=== PATIENT | female | born 1995 | race Caucasian/White ===

== ENCOUNTER 2017-05-04 15:41 | Inpatient (IN) ==
[2017-05-04] MEDS ORDERED: Naloxone 0.4 MG/ML INJ IVP PRN (15:48)
[2017-05-04] MEDS ORDERED: Ondansetron 4 MG/2 ML VIAL IVP PRN (15:48)
[2017-05-04] MEDS ORDERED: Famotidine 20 MG/2 ML VIAL IVP PRN (15:48)
[2017-05-04] MEDS ORDERED: Penicillin G Potassium 5,000,000 UNIT in 0.9 % Sodium Chloride Mini Bag 100 ML IVPB ONE (16:16)
[2017-05-04 16:21] LABS: Basophils % 0.2 %; Eosinophils % 0.4 %; Hematocrit 37.2 % (35.3-44.9); Lymphocytes # 1.3 K/mcL (0.6-4.6); Lymphocytes % 13.9 %; Mean Corpuscular HGB Conc 34.9 g/dL (31.6-35.5); Mean Corpuscular Hemoglobin 31.1 pg (28.0-33.3); Mean Platelet Volume 10.1 fL (9.4-12.4); Monocytes # 0.6 K/mcL (0.0-1.3); Neutrophils # 7.4 K/mcL (1.6-8.9); Platelet Count 216 K/mcL (140-400); Red Blood Count 4.18 M/mcL (3.82-4.97); Red Cell Distribution Width 12.9 % (11.5-14.5); Segmented Neutrophils % 78.5 %
[2017-05-04 16:50] LABS: Amphetamine Screen,Urine Negative ng/mL (Cutoff=1000); Barbiturate Screen,Urine Negative ng/mL (Cutoff=200); Benzodiazepines Screen,Urine Negative ng/mL (Cutoff=200); Cannabinoid Screen,Urine Negative ng/mL (Cutoff = 50); Cocaine Screen,Urine Negative ng/mL (Cutoff= 300); Opiate Screen,Urine Negative ng/mL (Cutoff=300); Phencyclidine Screen,Urine Negative ng/mL (Cutoff=25)
--- NOTE | 2017-05-04 16:50 | OB/GYN History & Physical ---
Date of Encounter: 05/04/17 Time of Encounter: 16:45 Assessment and Plan (1) SROM (spontaneous rupture of membranes) Current visit: Yes Status: Acute Patient reports SROM at 1300 today. Nitrazine postive GBS final cultures pending-will start PCN prophylaxis 2-3/-1 LR 125 ml/hr CBC UDS Monitoring Contractions every 3-4 minutes on the monitor Plan for (2) Uterine contractions Current visit: Yes Status: Acute Patient states that she has been having contractions since arrival to L&D Contractions every 3-4 minutes on the monitor. (3) 37 weeks gestation of Current visit: Yes Status: Acute Patient is 37w3d History of Present Illness Chief complaint: SROM HPI: Ms. Riddle is a 22 year old female at 37w3d presents to L&D due to feeling like her water broke. She states that she had a gush of clear fluid around 1300 today. States that she started having contractions after arrival to L&D that have been about 7 minutes apart. Denies any vaginal bleeding or discharge. Reports good movement. Denies any complication with this . States that she was seeing Dr. Baez but is now seeing the midwives. Blood type A Positive GBS pending-prelim was negative with yeast T Pallidum negative Hep B negative HIV negative I examined this patient and my medical decision-making was reviewed with the Resident Physician. I agree with the documented findings, disposition and treatment plan as described except to the extent set forth below. ESTEBAN Trevino Past Med Surg Social Fam HX - Past Medical History Medical history: no medical history Psychiatric history: no psych history - Past Surgical History Surgical History: no surgical history - Social History Smoking Status: Never smoker Smokeless Tobacco Status: No Alcohol use: none Drug use: none - Family History Mother Age: 50 Living Status: Still Living Hx Family Cardiac Disorders: No Hx Family Respiratory Disorders: No Hx Family Cancer: No Hx Family GI Disorders: No Hx Family Genitourinary Disorders: No Hx Family Endocrine Disorder: No Hx Family Musculoskeletal Disorders: No Hx Family Neuromuscular Disorders: No Hx Family Neurologic Disorders: No Hx Family HEENT Disorders: No Hx Family Autoimmune Disorders: No Hx Family Reproductive Disorders: No Hx Family Psychosocial Disorders: No Hx Family Medical Disorders: No Obstetrical History - Pregnancies : 1 Para: 0 Term: 0 : 0 Ab's: 0 Livin - History/Complications History/Complications: US showed Skeletal displasia (dwarfism) Family hx of dwarfism Medications and Allergies Vit/Iron Fumarate/FA [ Tablet] 1 / PO DAILY 05/04/17 [History] 3 Allergy/AdvReac Type Severity Reaction Status Date / Time No Known Allergies Allergy Verified 05/04/17 16:26 Review of System OB All systems PM: reviewed and no additional remarkable complaints except as stated - Cardiovascular Cardiovascular: pedal edema Exam - Constitutional Constitutional: well developed, well nourished, no acute distress, average body habitus - HEENT HEENT: Normocephaly, Mucus Membranes Moist - Neck Neck exam: full ROM - Lungs Respiratory exam: CTAB - Cardiovascular Cardiovascular exam: RRR, +S1, +S2 - Abdomen Abdomen: Present: bowel sounds normal, gravid. Absent: non tender - Extremities Extremities exam: full ROM, normal capillary refill, pedal edema (Mild edema in the bilateral lower extremities. Without any pain) - Cervix Dilation: 2 ((2-3) Per nursing) Effacement: 80 (Per Nursing) Station: -1 (Per nursing) Results Result Diagrams: 05/04/17 16:03 All other labs normal. - VTE Reasons for not Prescribing Prophylaxis: Treatment not Indicated - Low risk for VTE
[2017-05-04] MEDS: Ringers Solution, Lactated 1,000 ML IVC SCH (16:52)
[2017-05-04] MEDS ORDERED: Penicillin G Potassium 2,500,000 UNIT in D5% in Water 100 ML IVPB SCH (20:00)
[2017-05-04] MEDS ORDERED: Oxytocin 20 units/ LR 1000 mL 20 UNIT/1,000 ML BAG IVC SCH (20:45)
--- NOTE | 2017-05-04 22:31 | OB Labor Progress Note ---
Date of Encounter: 05/04/17 Time of Encounter: 22:29 Labor Progress Note - Subjective Subjective: Patient resting in bed. Discussed POC with patient. Patient denies any questions or concerns. Pitocin currently on 4 milliunits - Cervix Cervix: 3.5/80/-2 - Heart Tones Heart Tones: 135 bpm moderate variability +15x15 accels no decels noted. - Corrales Corrales: 2-3 min apart - Interventions Interventions: SVE, IUPC placed without difficulty. Patient tolerated well. - Plan Plan: Continue labor management.
[2017-05-04] MEDS ORDERED: *HR* Nalbuphine 20 MG/ML AMPUL IVP PRN (23:54)
[2017-05-05] MEDS: Ringers Solution, Lactated 1,000 ML IVC SCH (00:11)
--- NOTE | 2017-05-05 01:50 | OB/GYN Procedure Note ---
Delivery - Delivery Date: 05/05/17 Provider: Mariah Buckner (Dr. Sanz, PGY1) Intrapartum events: none Delivery induction: none Delivery augmentation: pitocin Delivery monitor: external FHT, internal uterine Anesthesia: local Estimated Blood Loss: 400 - (s) Infant A Delivery Date: 05/05/17 Infant Delivery Time: 01:02 Presentation: vertex Position: KATHY Route of delivery: Gender: Female Viability: Viable Pounds: 6 Ounces: 4 Weight Gram: 2845 kg at 1 minute: 7 at 5 mins: 9 Shoulder Dystocia: not encountered Specimens collected: cord blood Placenta: spontaneous Cord: 3 umbilical vessels - Repair Episiotomy: none Laceration Description: Periurethral (left periurethral), Perineal - 1st Degree - Complications Delivery complications: none - Disposition Mom disposition: stable in LDR disposition: stable in LDR - Comments Comments: Called to LDR, patient complete and +2 station. Patient placed in stirrups and prepped for delivery. Under maternal effort patient spontaneously delivered a viable female over a 1st degree perineal laceration. No nuchal, meconium or shoulder dystocia was encountered. placed on maternal abdomen. Cord was clamped and cut after pulsation ceased. 1st degree perineal laceration was repaired with 3-0 vicryl and and small left periurethral was noted and repaired with 4-0 vicryl. Placenta delivered spontaneously and intact. Both mother and infant stable in LDR.
[2017-05-05] MEDS ORDERED: Acetaminophen 325 MG TABLET PO PRN (04:09)
[2017-05-05] MEDS ORDERED: Benzocaine/Menthol 56 GM AEROSOL SPRAY TP PRN (04:09)
[2017-05-05] MEDS ORDERED: *HR* HYDROcodone/Acet 5/325 mg TABLET PO PRN (04:09)
[2017-05-05] MEDS ORDERED: Lanolin 7 G OINT...G. TP PRN (04:09)
[2017-05-05] MEDS ORDERED: Oxytocin 20 units/ LR 1000 mL 20 UNIT/1,000 ML BAG IVC SCH (04:09)
[2017-05-05] MEDS ORDERED: Ibuprofen 600 MG TABLET PO PRN (04:09)
[2017-05-05] MEDS ORDERED: Measles/Mumps/Rubella Vacc 0.5 ML VIAL SQ PRN (04:09)
[2017-05-05 08:16] VITALS: BP 103/62
[2017-05-05] MEDS ORDERED: Prenatal Vit/FA 1 EACH TABLET PO SCH (09:00)
--- NOTE | 2017-05-05 10:15 | Discharge Summary ---
Date of Encounter: 05/05/17 Time of Encounter: 10:35 - Discharge Diagnosis (1) Vaginal delivery Priority: Primary Status: Acute Comments: S/P vaginal delivery day 1 Pain is well controlled Lochia is light and without clots VSS Voiding and passing flatus without difficulty Patient is pumping for in nursery. Discharge to guest. - Discharge Medications Prescriptions: Ibuprofen [Motrin] 600 mg PO Q6HR PRN #30 tablet PRN Reason: Cramping Breast Pump [BREAST PUMP] 1 each .ROUTE AD #1 each Docusate [Colace] 100 mg PO BID #20 capsule Ferrous Sulfate 325 mg PO DAILY #30 tablet Home Medications: Vit/Iron Fumarate/FA [ Tablet] 1 / PO DAILY 05/04/17 [History] Acetaminophen [Tylenol] 650 mg PO Q6HR PRN tablet 05/05/17 [Rx] Benzocaine/Menthol [place] [Dermoplast [place]] 1 appl TP QID PRN aerosol 05/05/17 [Rx] Breast Pump [BREAST PUMP] 1 each .ROUTE AD #1 each 05/05/17 [Rx] Docusate [Colace] 100 mg PO BID #20 capsule 05/05/17 [Rx] Ferrous Sulfate 325 mg PO DAILY #30 tablet 05/05/17 [Rx] Ibuprofen [Motrin] 600 mg PO Q6HR PRN #30 tablet 05/05/17 [Rx] Lanolin [Lansinoh] 1 appl TP TID PRN oint...g. 05/05/17 [Rx] Allergies/Adverse Reactions: 3 Allergy/AdvReac Type Severity Reaction Status Date / Time No Known Allergies Allergy Verified 05/04/17 16:26 Data Procedures and tests throughout hospitalization: Laboratory Tests 05/04/17 05/04/17 16:03 16:03 WBC 9.4 RBC 4.18 Hgb 13.0 Hct 37.2 MCV 89.0 MCH 31.1 MCHC 34.9 RDW 12.9 Plt Count 216 MPV 10.1 Immature Gran % 1.0 Seg Neutrophils % 78.5 Lymphocytes % 13.9 Monocytes % 6.0 Eosinophils % 0.4 Basophils % 0.2 Neutrophils # 7.4 Lymphocytes # 1.3 Monocytes # 0.6 Eosinophils # 0.0 Basophils # 0.0 Urine Opiates Screen Negative Ur Barbiturates Screen Negative Ur Phencyclidine Scrn Negative Ur Amphetamines Screen Negative U Benzodiazepines Scrn Negative Urine Cocaine Screen Negative U Marijuana (THC) Screen Negative Labs on day of discharge: Labs from last 24 hours 05/04/17 05/04/17 16:03 16:03 WBC 9.4 RBC 4.18 Hgb 13.0 Hct 37.2 MCV 89.0 MCH 31.1 MCHC 34.9 RDW 12.9 Plt Count 216 MPV 10.1 Immature Gran % 1.0 Seg Neutrophils % 78.5 Lymphocytes % 13.9 Monocytes % 6.0 Eosinophils % 0.4 Basophils % 0.2 Neutrophils # 7.4 Lymphocytes # 1.3 Monocytes # 0.6 Eosinophils # 0.0 Basophils # 0.0 Urine Opiates Screen Negative Ur Barbiturates Screen Negative Ur Phencyclidine Scrn Negative Ur Amphetamines Screen Negative U Benzodiazepines Scrn Negative Urine Cocaine Screen Negative U Marijuana (THC) Screen Negative Date of admission: 05/04/17 15:41 Primary care physician: PCP LISA Consults: 05/05/17 04:09 Consult to Probe Operator [CONS] Routine Comment: Vaginal delivery, consult needed Discharging clinician: Cassandra Carreno Anticipated date of discharge: 05/05/17 - Patient Status Disposition: Home, Self-Care Condition: Good Functional capacity at discharge: independent ambulation Overall status at discharge: patient is back to baseline - Discharge Instructions Follow Up With: NONE,PCP [Primary Care Provider] - Mariah Buckner CNM [Non-Partnered Physician] - - Diet and Activity Activity: increase activity as tolerated Diet: regular diet Hospital Course Reason for admission: rupture of membranes, IUP at term Delivery: Episiotomy: none Laceration: 1st degree Other procedures: none complications: none Discharge diagnosis: IUP at term delivered [place] baby: female Time Attestation: Total time spent providing and/or coordinating discharge services: Time Spent: Less than 30 minutes Exam - Constitutional Vitals: Temp Pulse Resp BP Pulse Ox 98.4 F 98 16 103/62 97 05/05/17 07:35 05/05/17 07:35 05/05/17 07:35 05/05/17 07:35 05/05/17 07:35 General appearance IM: cooperative, A&O X 3, pleasant - Respiratory Respiratory exam: Present: CTAB - Cardiovascular Cardiovascular exam IM: Present: RRR, +S1, +S2 - GI/Abdominal GI/Abdominal exam IM: normal bowel sounds, soft - Uterine Tone: Firm Uterus Position: At Umbilicus, Midline - Extremities Exam Extremities exam IM: Present: normal capillary refill, normal inspection, radial pulses palpable and symmetrical - Neurological Exam Neurological exam: alert, oriented X3
== END 2017-05-05 12:33 | disposition home or self-care (01) | DRG 775 ==
LOC: 1NENULAB → OBSVTOIN 15:41 → 1NENUOBS 05-05 04:06
PROVIDERS: ADMIT Obstetrics & Gynecology; ATTEND Obstetrics & Gynecology

== ENCOUNTER 2019-12-30 09:50 | Inpatient (IN) ==
[2019-12-30] MEDS ORDERED: Ondansetron 4 MG/2 ML VIAL IVP PRN ×2 (09:56→11:13)
[2019-12-30] MEDS ORDERED: miSOPROStoL 25 MCG TABLET PO PRN ×2 (09:56→11:13)
[2019-12-30] MEDS ORDERED: Famotidine 20 MG/2 ML VIAL IVP PRN ×2 (09:56→11:12)
[2019-12-30] MEDS ORDERED: Naloxone 0.4 MG/ML INJ IVP PRN ×2 (09:56→11:14)
[2019-12-30] MEDS ORDERED: *HR* FentaNYL (PF) 100 MCG/2 ML VIAL IVP PRN ×2 (09:56→11:13)
[2019-12-30] MEDS ORDERED: Metoclopramide 10 MG/2 ML VIAL IVP PRN ×2 (09:56→11:13)
[2019-12-30] MEDS ORDERED: Lidocaine 1% 20 ML MDV INFILT PRN ×2 (09:56→11:13)
[2019-12-30] MEDS ORDERED: Ringers Solution, Lactated 1,000 ML IVC SCH (10:00)
[2019-12-30 11:06] LABS: Basophils % 0.4 %; Eosinophils # 0.1 K/mcL (0.0-0.6); Eosinophils % 0.7 %; Hematocrit 40.1 % (35.3-44.9); Hemoglobin 13.6 g/dL (11.5-15.4); Lymphocytes # 1.8 K/mcL (0.6-4.6); Lymphocytes % 21.7 %; Mean Corpuscular HGB Conc 33.9 g/dL (31.6-35.5); Mean Corpuscular Hemoglobin 30.7 pg (28.0-33.3); Mean Corpuscular Volume 90.5 fL (83.0-100.0); Mean Platelet Volume 10.1 fL (9.4-12.4); Monocytes # 0.6 K/mcL (0.0-1.3); Monocytes % 7.1 %; Neutrophils # 5.6 K/mcL (1.6-8.9); Platelet Count 213 K/mcL (140-400); Red Blood Count 4.43 M/mcL (3.82-4.97); Red Cell Distribution Width 13.2 % (11.5-14.5); Segmented Neutrophils % 69.1 %; White Blood Count 8.1 K/mcL (4.3-11.1)
[2019-12-30 11:11] LABS: Amphetamine Screen,Urine Negative ng/mL (Cutoff=1000); Barbiturate Screen,Urine Negative ng/mL (Cutoff=200); Benzodiazepines Screen,Urine Negative ng/mL (Cutoff=200); Cannabinoid Screen,Urine Negative ng/mL (Cutoff = 50); Cocaine Screen,Urine Negative ng/mL (Cutoff= 300); Opiate Screen,Urine Negative ng/mL (Cutoff=300); Phencyclidine Screen,Urine Negative ng/mL (Cutoff=25)
[2019-12-30] MEDS ORDERED: Oxytocin 20 units/ LR 1000 mL 20 UNIT/1,000 ML BAG IVC SCH (16:00)
[2019-12-30] MEDS: Ringers Solution, Lactated 1,000 ML IVC SCH ×2 (16:20→18:18)
[2019-12-31] MEDS ORDERED: Oxytocin 20 units/ LR 1000 mL 20 UNIT/1,000 ML BAG IVC SCH (02:08)
[2019-12-31] MEDS ORDERED: Benzocaine/Menthol 56 GM AEROSOL SPRAY TP PRN (02:08)
[2019-12-31] MEDS ORDERED: Ibuprofen 600 MG TABLET PO PRN (02:08)
[2019-12-31] MEDS ORDERED: Lanolin 7 G OINT...G. TP PRN (02:08)
[2019-12-31] MEDS ORDERED: Acetaminophen 325 MG TABLET PO PRN (02:08)
[2019-12-31] MEDS ORDERED: Oxytocin 20 units/ LR 1000 mL 20 UNIT/1,000 ML BAG IVC ONE (02:08)
[2019-12-31] MEDS ORDERED: Prenatal Vit/FA 1 EACH TABLET PO SCH (09:00)
[2019-12-31 16:24] VITALS: BP 119/76
== END 2019-12-31 17:10 | disposition home or self-care (01) | DRG 807 ==
LOC: 1NENULAB 09:50 → 1NENUOBS 12-31 02:49
PROVIDERS: ADMIT Advanced Practice Midwife; ATTEND Advanced Practice Midwife